=== PATIENT | male | born 1995 | race Asian ===

== ENCOUNTER 2017-02-03 14:45 | Emergency (ER) | payer OTHER ==
[~2017-02-03] VITALS: Ht 172.7 cm; Wt 54.4 kg
--- NOTE | 2017-02-03 15:30 | EKG ---
[address] [address] Test Date: 2017-02-03 Test Time: 14:53:39 Pat Name: JERONIMO MARTINEZ Department: Room: Gender: M Legal Billing Clerk: : 1995 Requested By: JOSE GOODMAN Order Number: [id number] Reading MD: Measurements Intervals [place] Rate: 64 P: 61 MO: 162 QRS: 18 QRSD: 112 T: 25 QT: 392 QTc: 408 Interpretive Statements SINUS RHYTHM INCOMPLETE RIGHT BUNDLE BRANCH BLOCK AMPLITUDE CRITERIA FOR LVH QRS(T) CONTOUR ABNORMALITY CONSISTENT WITH SEPTAL INFARCT PROBABLY OLD ST & T ABNORMALITY, CONSIDER ANTEROLATERAL ISCHEMIA OR LEFT VENTRICULAR STRAIN ABNORMAL ECG RI6.01 No previous ECG available for comparison
[2017-02-03 15:36] LABS: BASO # 0.1 x10^3/uL (0.0-0.2); BASO % 1 % (0-3); EOS # 0.1 x10^3/uL (0.0-0.7); EOS % 1 % (0-3); HEMATOCRIT 47.3 % (39.0-53.0); HEMOGLOBIN 16.2 g/dL (13.0-17.5); LYMPH # 1.4 x10^3/uL (1.0-4.8); LYMPH % 19 % (24-48); MEAN CORPUSCULAR HEMOGLOBIN 30 pg (25-35); MEAN CORPUSCULAR HGB CONC 34 g/dL (31-37); MEAN CORPUSCULAR VOLUME 87 fL (79-100); MONO # 0.5 x10^3/uL (0.0-1.1); MONO % 7 % (0-9); NEUT # 5.5 x10^3uL (1.8-7.7); NEUT % 73 % (31-73); PLATELET COUNT 283 x10^3/uL (140-400); RED BLOOD COUNT 5.42 x10^6/uL (4.30-5.70); RED CELL DISTRIBUTION WIDTH 13.2 % (11.5-14.5); WHITE BLOOD COUNT 7.6 x10^3/uL (4.0-11.0)
--- NOTE | 2017-02-03 15:42 | RAD ---
Portable chest, 02/03/2017: History: Chest pain There is been a previous median sternotomy. The heart size and pulmonary vascularity are normal. There is a right paratracheal density raising the possibility of a right-sided aortic arch or other vascular anomaly. No pulmonary infiltrates are seen. There is no evidence of pleural fluid. IMPRESSION: 1. Previous chest surgery. 2. Right paratracheal mediastinal density suggesting a vascular anomaly such as a right-sided aortic arch. It is there a history of congenital heart disease? 3. No acute infiltrates.
[2017-02-03] MEDS: IOHEXOL 300 MG/ML 75 ML VIAL. IV ONE (15:44)
--- NOTE | 2017-02-03 15:48 | PHYS DOC ---
General Chief Complaint: CHEST PAIN Stated Complaint: CHEST PAIN Time Seen by MD: 14:48 Source: patient Exam Limitations: no limitations Problems: History of Present Illness Initial Comments Pt is 21/M with extensive cardiac history to ED with chest pain. Pt states approximately 10pm last night while driving he experienced sudden onset anterior chest "squeezing" discomfort. This was described as moderate to severe in intensity, lasting a few seconds before spontaneously resolving. No associated nausea/diaphoresis/SOB/arm or neck sx/dizziness/weakness. Pt says he considered that it could be from anxiety or stress last night and hoped it would stop. Since then he says he's had recurrances "about once an hour." He follows with Dr Romeo Bond Jack Spinner ([phone] office/[phone] mobile) and called him today to discuss these symptoms. Dr Bond directed pt to go to an ED for evaluation. Shortly after visiting with the pt ([id number]) I called Dr Bond to discuss pt and what exactly were his concerns. 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 As what is now his aorta is thin walled, it has become dilated last measured at 56mm. Pt is in process of approval of mechanical valve replacement and essentially vascular sleeve replacement of dilated portion in [place], [place]. He requested we do normal cardiac workup, also requests CTA evaluation to determine if aneurysm/dissection or other abnormality has developed. I advised Dr Bond we would call him with the results. I also discussed pt EKG with Dr Bond, he advised that it is basically identical to pt baseline EKG. Timing/Duration: intermittent, other Severity: moderate Associated Symptoms: chest pain Allergies: Coded Allergies: No Known Drug Allergies (Unverified , 05/04/15) Past Medical History Medical History: other (Transposition of Vessels, Valvular Insufficiency, aortic root dilatation) Surgical History: other (VSD, ASD, arterial switch) Social History Smoker: non-smoker Alcohol: none Drugs: none Review of Systems Constitutional: denies diaphoresis, denies fever, denies malaise Respiratory: denies cough, denies shortness of breath Cardiovascular: see HPI Gastrointestinal: denies abdominal pain, denies vomiting Musculoskeletal: denies back pain, denies joint swelling, denies neck pain Psychiatric/Neurological: denies headache, denies numbness, denies paresthesia Hematologic/Lymphatic: denies blood clots, denies easy bleeding, denies easy bruising Physical Exam General Appearance: WD/WN, no apparent distress Ear, Nose, Throat: hearing grossly normal, normal ENT inspection Neck: non-tender, supple Respiratory: chest non-tender, normal breath sounds, no respiratory distress Cardiovascular: normal peripheral pulses, regular rate, rhythm, diastolic murmur, systolic murmur, other (sternotomy scar) Gastrointestinal: non tender, soft Back: no CVA tenderness, no vertebral tenderness Extremities: non-tender, normal inspection, no pedal edema 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 Interpreted by me. PATIENT: ROMEO MARTINEZ ACCOUNT: [id number] : 1995 LOCATION: ER AGE: 21 SEX: M EXAM STATUS: REG ER ORD. PHYSICIAN: JOSE GOODMAN DO REASON: cp PROCEDURE: PORTABLE CHEST 1V Portable chest, 02/03/2017: History: Chest pain There is been a previous median sternotomy. The heart size and pulmonary vascularity are normal. There is a right paratracheal density raising the possibility of a right-sided aortic arch or other vascular anomaly. No pulmonary infiltrates are seen. There is no evidence of pleural fluid. IMPRESSION: 1. Previous chest surgery. 2. Right paratracheal mediastinal density suggesting a vascular anomaly such as a right-sided aortic arch. It is there a history of congenital heart disease? 3. No acute infiltrates. DICTATED AND SIGNED BY: PAYTON IRELAND MD DATE: 02/03/17 153 CC: RADHA HARRINGTON DO; JOSE GOODMAN DO ~ PATIENT: ROMEO MARTINEZ ACCOUNT: [id number] : 1995 LOCATION: ER AGE: 21 SEX: M EXAM STATUS: REG ER ORD. PHYSICIAN: JOSE GOODMAN DO REASON: h/o transposition/arterial switch, eval known 56mm dilated aorta PROCEDURE: CT ANGIOGRAPHY CHEST CT chest angiogram Indication: Chest pain.. Evaluate for dissection. 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 Technique: CT angiogram of the chest with 75 mL of Omnipaque 300 with multiplanar reformats. Sagittal and coronal MIP reformats were performed. Volume rendered postprocessing was performed. Comparison: None Findings: Sternotomy changes. Right-sided aortic arch. There is evidence of repair of transposition of the great arteries.. There is moderate cardiomegaly with enlarged left atrium. Practice. Aortic wall noted. There is aneurysmal dilation of the aortic root measuring 5.1 x 4.6 (axial) x 6.0 cm (craniocaudal). The aorta measures 3.1 cm in diameter at sinotubular junction. The ascending thoracic aorta measures 2.6 cm in diameter. The aortic arch diameter measures 2.1 cm. The descending aorta at the level of nicki measures 2.2 cm. There is no evidence of aortic dissection. No pericardial or pleural effusion. There is no evidence of filling defects in the pulmonary arteries. No axillary, mediastinal or hilar adenopathy. There is motion artifact noted within lung bases. No focal consolidation. 4 mm nodules seen in the left major fissure (series 6 image 59). Otherwise, lungs are clear. Visualized sections through the liver, spleen, gallbladder, pancreas, adrenals and kidneys are within normal limits. 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 No suspicious bony lesions. Impression: 1. Postsurgical changes from repair of transposition of great arteries. 2. Aneurysmal dilation of the aortic root as described above measuring 5.1 cm in widest dimension. Direct correlation with outside imaging recommended to evaluate for interval change from prior study. No evidence of dissection. 3. 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 4. Left major fissure pulmonary nodule (4 mm). According to fracture site and recommendation in a low risk patient no routine follow-up necessary. In a high-risk patient CT chest at 12 months recommended for follow-up. PQRS Compliance Statement: One or more of the following individualized dose reduction techniques were utilized for this examination: 1. Automated exposure control 2. Adjustment of the mA and/or kV according to patient size 3. Use of iterative reconstruction technique DICTATED AND SIGNED BY: LUZ AIKEN DATE: 02/03/17 1606 CC: RADHA HARRINGTON DO; JOSE GOODMAN DO ~ Labs unremarkable 1654: I discussed results with Dr Bond who is reassured. He requests that we d/c Romeo home with reassurance, advise him to hydrate orally and call his office in am to schedule follow up appt. He also requests the CT images, we will send them on disk with pt. Departure Time of Disposition: 16:57 Disposition: 01 HOME, SELF-CARE Diagnosis: Chest Pain nonspecific, h/o congenital heart disea Condition: GOOD Patient Instructions: Chest Pain (Nonspecific) Additional Instructions: Aggressive hydration with gatorade or water. Continue current meds. Follow up with Dr Bond, call tomorrow to schedule appointment. Take the disc of your CT images and these discharge instructions to your follow up appointment. Return to ED with new or changing symptoms. JOSE GOODMAN DO Feb 03, 2017 15:48
[2017-02-03 15:50] LABS: ALBUMIN 4.1 g/dL (3.4-5.0); ALBUMIN/GLOBULIN RATIO 1.3 (1.0-1.7); CALCIUM 8.8 mg/dL (8.5-10.1); CREATININE 0.7 mg/dL (0.7-1.3); GFR 143.8; MAGNESIUM 2.1 mg/dL (1.8-2.4); TOTAL BILIRUBIN 0.8 mg/dL (0.2-1.0); TOTAL PROTEIN 7.3 g/dL (6.4-8.2)
--- NOTE | 2017-02-03 16:28 | RAD ---
CT chest angiogram Indication: Chest pain.. Evaluate for dissection. 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 Technique: CT angiogram of the chest with 75 mL of Omnipaque 300 with multiplanar reformats. Sagittal and coronal MIP reformats were performed. Volume rendered postprocessing was performed. Comparison: None Findings: Sternotomy changes. Right-sided aortic arch. There is evidence of repair of transposition of the great arteries.. There is moderate cardiomegaly with enlarged left atrium. Practice. Aortic wall noted. There is aneurysmal dilation of the aortic root measuring 5.1 x 4.6 (axial) x 6.0 cm (craniocaudal). The aorta measures 3.1 cm in diameter at sinotubular junction. The ascending thoracic aorta measures 2.6 cm in diameter. The aortic arch diameter measures 2.1 cm. The descending aorta at the level of nicki measures 2.2 cm. There is no evidence of aortic dissection. No pericardial or pleural effusion. There is no evidence of filling defects in the pulmonary arteries. No axillary, mediastinal or hilar adenopathy. There is motion artifact noted within lung bases. No focal consolidation. 4 mm nodules seen in the left major fissure (series 6 image 59). Otherwise, lungs are clear. Visualized sections through the liver, spleen, gallbladder, pancreas, adrenals and kidneys are within normal limits. 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 No suspicious bony lesions. Impression: 1. Postsurgical changes from repair of transposition of great arteries. 2. Aneurysmal dilation of the aortic root as described above measuring 5.1 cm in widest dimension. Direct correlation with outside imaging recommended to evaluate for interval change from prior study. No evidence of dissection. 3. 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 4. Left major fissure pulmonary nodule (4 mm). According to fracture site and recommendation in a low risk patient no routine follow-up necessary. In a high-risk patient CT chest at 12 months recommended for follow-up. PQRS Compliance Statement: One or more of the following individualized dose reduction techniques were utilized for this examination: 1. Automated exposure control 2. Adjustment of the mA and/or kV according to patient size 3. Use of iterative reconstruction technique
[2017-02-03 17:20] VITALS: BP 153/72
== END 2017-02-03 17:20 | disposition home or self-care (01) ==
LOC: ER 14:45
DX: R07.89 Other chest pain (principal); Q24.9 Congenital malformation of heart, unspecified; Q21.0 Ventricular septal defect; Q21.1 Atrial septal defect
CPT/HCPCS: 36415; 71010; 71275; 80053; 82550; 83735; 83880; 84484; 85025; 93005; Q9967; 99285-25